=== PATIENT | male | born 1935 | race Caucasian/White ===

== ENCOUNTER 2019-09-16 13:18 | Outpatient (CLI) | payer MEDICARE, SELFPAY ==
[2019-09-16 15:42] LABS: Basophils % 0.2 %; Eosinophils # 0.1 10^3/uL (0.0-0.8); Eosinophils % 3.1 %; Hematocrit 38.6 % (42.0-52.0); Hemoglobin 12.7 g/dL (11.7-16.6); Lymphocytes # 2.5 10^3/uL (0.8-4.8); Lymphocytes % 54.7 %; Mean Corpuscular HGB Conc 32.9 g/dL (30.0-36.0); Mean Corpuscular Hemoglobin 30.4 pg (28.0-34.0); Mean Corpuscular Volume 92.3 fL (80-94); Mean Platelet Volume 10.6 fL (7.4-10.4); Monocytes # 0.5 10^3/uL (0.2-0.9); Monocytes % 11.5 %; Neutrophils # 1.4 10^3/uL (1.8-7.7); Neutrophils % 30.5 %; Nucleated Red Blood Cells % 0 %; Platelet Count 122 10^3/cmm (130-400); Red Blood Count 4.18 10^6/uL (4.1-5.3); Red Cell Distribution Width 13.3 % (12.1-15.1); White Blood Count 4.5 10^3/uL (4.0-10.0)
[2019-09-16 16:03] LABS: Testosterone Total 2.5 ng/dL (193-740)
[2019-09-16 16:17] LABS: Alanine Aminotransferase 10 U/L (0-41); Alkaline Phosphatase 575 IU/L (40-130); Anion Gap 16.9 (5-19); Aspartate Amino Transferase 21 U/L (0-40); Blood Urea Nitrogen 17 mg/dL (8-23); Carbon Dioxide 26 mmol/L (22-29); Chloride 95 mmol/L (98-107); Globulin 2.8 g/dL (1.3-4.6); Glucose 87 mg/dL (65-115); Osmolality Calculated 274 mOsm/kg (285-295); Potassium 3.9 mmol/L (3.5-5.1); Sodium 134 mmol/L (136-145); Total Bilirubin 0.7 mg/dL (0.15-1.2); Total Protein 6.8 g/dL (6.6-8.7)
--- NOTE | 2019-09-16 17:47 | ONC CON_ITS ---
Dr. Jensen New Patient Note Patient: Noe Acosta Unit #: [id number]: [id number] Dicatated By: Noe Jensen M.D.Date of Visit: Sep 16, 2019 Onc MED New Patient/Consult Referring Physician: Yisel Baker N.P. Chief Complaint: Prostate cancer. History of Present Illness: This is an 83 year-old man with metastatic prostate cancer. His prostate cancer was discovered in October 2017 after he had been sent to the emergency room for evaluation for left hip pain which he had developed in association with a minor injury. According to the patient's daughter, his PSA level was found to be greater than 400, and there apparently was evidence of metastatic involvement in the bone. He had further treatment under the direction of Dr. Boykin in [place], [place], which apparently did include a prostate biopsy. According to the patient's daughter, he was recommended to begin androgen deprivation therapy, but he instead sought alternative therapy in [place]. During his treatment there he did begin treatment with degarelix, which he then continued monthly after returning home. His PSA reportedly nadired at less than 1, but it then began to increase gradually. The most recent study I have available is from 07/13/[address] Jones's office, at which point it was back up to 109.00 ng/mL. Sometime within the last few months his degarelix injections were stopped. He is seen now for further management. His daughter indicates that his condition has been declining significantly over the last few months. His main complaint is left hip pain, which is now significant enough that he is no longer to operate the clutch pedal in his pickup. He has difficulty walking, and he has been having to use a walker to ambulate. Lately he has had to have help to get into the shower. His ECOG score is 2. His appetite is not been very good. He has had a weight loss in the range of 45 pounds during the past year. He does not have fever, night sweats, or hot flashes. He is somewhat short of breath at times. He does not complain of cough, and he has not been having chest pain. He has no GI complaints. He has urinary frequency and nocturia, and he complains that his urination is slow. His most significant pain is in the left hip. At times he also has had some problems with his right leg. He does not complain of headache or dizziness. He has no focal neurologic symptoms. Past Medical History: His medical history includes atrial fibrillation, hyperlipidemia, hypertension, pulmonary embolism, and prostate cancer. 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 Medications: bitter aprcot seed 1 Capsule Oral four times a day, Cholecalciferol 1 Tablet (of 100 mcg ) Oral t.i.d., Eliquis 1 Tablet (of 5 mg) Oral b.i.d., gamma e 1 Capsule Oral b.i.d., Milk Thistle 1 Tablet Oral daily, super b-15 1 Capsule b.i.d., Turmeric 1 Capsule Oral b.i.d., Vitamin d3 & K2 1 Capsule Oral b.i.d. Allergies: No Known Allergies. Social History: Mr. Acosta is and he is retired. 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 He is a non-smoker. He does not drink alcohol. Family History: Father with metastatic melanoma at age 68. Mother had coronary artery disease. She at age 84, apparently of old age. He had a total of 7 siblings. One brother of colon cancer and another brother with some type of GI malignancy. One sister with heart disease. Review Of Symptoms: Constitutional - His energy is pretty good, but he has activity restriction due to his hip pain. His appetite is not very good. One year ago he was at his normal weight at 220. No fever, night sweats, or hot flashes. ECOG score is 2, Eyes - He wears glasses, ENMT - He has hearing loss. No sinus congestion/drainage. No mouth sores. No sore throat or difficulty swallowing, Hematologic/Lymphatic - He bruises easily, Respiratory - He gets short of breath with activity. No cough. No pleuritic pain or hemoptysis, Cardiovascular - No angina pain. No palpitations. He has a pacemaker, Gastrointestinal - No nausea or vomiting. No heartburn or acid reflux. No diarrhea or constipation. No blood in the stool or black stools, Genitourinary (M) - No dysuria or hematuria. He has urinary frequency both day and night. No urgency or incontinence. His flow is very slow, Musculoskeletal - He has pain in his left hip. It first started after a minor injury at work in 2018. It has been getting worse over the last few months, Integumentary - No skin complications, Neurologic - No headache or dizziness. No numbness or tingling. No other focal neurologic symptoms, Psychiatric - No anxiety or depression. He has interrupted sleep because of nocturia. Vital Signs: Performed on Sep 16, 2019 14:07: 0, 26.67, 1.93 sq.m, 68.00 in, 100 %, 69 /min, 20 /min, 144/81 mm(hg) (HIGH), 97.8 F (LOW), and 175.4 lbs (HIGH). Physical Examination: Constitutional - He looks pretty good generally, but he does have limited mobility, Eyes - Sclerae nonicteric. Conjunctivae clear, ENMT - No lesions noted in the oral cavity, Neck - No mass or thyromegaly, Hematologic/Lymphatic - No cervical, clavicular, or axillary adenopathy, Respiratory - Lungs are clear with good air movement bilaterally, Cardiovascular - Heart rhythm is regular. There is a II/ systolic murmur. There is no gallop or rub noted, Abdomen - Soft and non-tender. Liver and spleen are not enlarged. There is no abdominal mass or ascites noted and there is no inguinal adenopathy, Back/Spine - No bony tenderness in the spine or ribs, Extremities - No edema. Postior tibial pulses are palpable bilaterally, Integumentary - No rashes. No suspicious skin lesions noted, Neurologic - No focal neurologic deficits noted. Impression: 1. Patient with known prostate cancer, reportedly with metastatic bone involvement at initial diagnosis in October 2017. 2. He had a good response to his initial androgen deprivation therapy with degarelix, but now with evidence of disease progression. 3. He has significant left hip pain, most likely due to metastatic involvement, and he has been showing significant decline in performance status. His other medical illnesses include: 4. Hypertension. 5. Hyperlipidemia. 6. Atrial fibrillation. 7. 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 8. He has a history of pulmonary embolism. He is on chronic anticoagulation. Plan: The patient and family are aware that his disease is progressing. We discussed the fact that it is the likely cause for his left hip pain. Assuming that is confirmed, he may benefit with palliative radiation. As such, he will have baseline laboratory studies today and he will be scheduled for bone scan and x-rays of the pelvis and left hip. I will arrange for referral to the radiation oncologist as indicated. In the meantime, he is recommended to restart androgen deprivation in combination with an androgen inhibitor, and I also will arrange to have him start treatment with Zoladex together with 14 days of bicalutamide. The androgen inhibitor will then be transitioned to enzalutamide 160 mg daily. In addition, with documentation of metastatic involvement in the bone, he also will be recommended to begin monthly denosumab injections. Lastly, I will request a next generation sequencing study to be done on the initial biopsy to screen for any potentially effective targeted therapy. All of this will be subject to verification of insurance coverage. Signed By: Noe Jensen M.D. <<Signature on File>>
== END 2019-09-16 13:19 | disposition home or self-care (01) ==
LOC: ONCMED 13:36
PROVIDERS: PCP Nurse Practitioner Family; Visit Provider Internal Medicine Medical Oncology
DX: C61 Malignant neoplasm of prostate (principal); C79.51 Secondary malignant neoplasm of bone; M25.552 Pain in left hip; I10 Essential (primary) hypertension; E78.5 Hyperlipidemia, unspecified; I48.91 Unspecified atrial fibrillation; Z95.0 Presence of cardiac pacemaker; Z86.711 Personal history of pulmonary embolism; Z79.01 Long term (current) use of anticoagulants
CPT/HCPCS: 36415; 80053; 84153; 84403; 85025; 99205

== ENCOUNTER 2019-09-23 07:56 | Outpatient (CLI) | payer MEDICARE, SELFPAY ==
--- NOTE | 2019-09-23 08:06 | NM_ITS ---
WS: [id number] NUCLEAR MEDICINE BONE SCAN Radiopharmaceutical: 24.2 Tc-99m MDP mCi IV Injection site: Right antecubital Postinjection imaging delay: 1 hr CLINICAL INFORMATION: PROSTATE CANCER COMPARISON: None. FINDINGS: Bone lesions: Diffuse intense osseous uptake throughout the visualized left hemipelvis involving the left iliac wing and both ischium. Involvement of the pubic rami left greater than right. Involvement of the pubic symphysis. Additional focal areas of uptake involving the left femoral head. Small punct ate foci of uptake involving the right posterior ribs. Constellation of findings are suspicious for m etastatic disease. Soft tissue contours: Normal. Kidneys: Normal. Other findings: None. NM/NM bone scan whole body* [id number] IMPRESSION: Intense pelvic bony uptake with several foci of uptake in the left posterior ri bs. Constellation of findings suspicious for metastatic disease.
--- NOTE | 2019-09-23 08:06 | XR_ITS ---
WS: [id number] HIP WITH PELVIS LEFT TECHNIQUE: 3 views of the left hip with pelvis CLINICAL INFORMATION: LEFT HIP PAIN - INCLUDE PELVIS COMPARISON: None FINDINGS: Diffuse sclerotic and mottled bony process involving the left hemipelvis and iliac wing. This extends into the left pubic rami. Findings are suspicious for metastatic disease. No comparisons available. XR/XR hip LT 2-3V wo/w pel* [id number] IMPRESSION: Diffuse patchy sclerotic and mottled infiltrative bone process involving the le ft hemipelvis described above suspicious for metastatic disease. Paget's diseas e is an additional consideration. Recommend correlation with clinical history.
== END 2019-09-23 07:57 | disposition home or self-care (01) ==
LOC: NM 08:03
PROVIDERS: PCP Nurse Practitioner Family; Visit Provider Internal Medicine Medical Oncology
DX: M25.552 Pain in left hip (principal); C61 Malignant neoplasm of prostate
CPT/HCPCS: 73502; 78306; A9561